=== PATIENT | female | born 1945 | race Hispanic/Latino ===

== ENCOUNTER 2021-07-22 09:57 | Outpatient (CLI) | payer MEDICAID | END 2021-07-22 09:58 | disposition home or self-care (01) | LOC: LABHHL 09:57 | PROVIDERS: ATTEND Otolaryngology Otology & Neurotology | DX: J32.0 Chronic maxillary sinusitis (principal); R51.9 Headache, unspecified; J34.3 Hypertrophy of nasal turbinates | CPT/HCPCS: 88305; 88311 ==